=== PATIENT | female | born 1955 | race Caucasian/White ===

== ENCOUNTER 2022-01-17 21:13 | Emergency (ER) | payer OTHER ==
[~2022-01-17] VITALS: Ht 165.1 cm; Wt 133.4 kg
--- NOTE | 2022-01-17 21:20 | NUR ---
BIBRA [id number] FROM HOME FOR C/O R SIDED ABDOMINAL PAIN. HX OD GALL BLADDER STONE. PT A/OX4. TOLERATING R/A WELL WITH NO SOB. PT NON AMBULATORY. CONNECTED PT TO POX AND MONITOR.
--- NOTE | 2022-01-17 21:50 | NUR ---
ASKED PT FOR URINE SAMPLE. PT REFUSED STATED " I ALREADY HAD ONE DONE AT [facility], GET IT FROM THEM." NIDHI BERGERON AWARE.
--- NOTE | 2022-01-17 21:53 | NUR ---
TRACK HOE OPERATOR AT PT'S BEDSIDE
[2022-01-17 21:57] LABS: BASOPHILS # (AUTO) 0.1 K/uL (0.0-0.2); BASOPHILS % (AUTO) 0.7 % (0.0-2.0); EOSINOPHILS % (AUTO) 2.4 % (0.0-6.0); HEMATOCRIT 37 % (33-45); HEMOGLOBIN 12.1 g/dL (11.5-14.8); LYMPHOCYTES # (AUTO) 1.9 K/uL (0.8-4.8); LYMPHOCYTES % (AUTO) 19.6 % (20.0-44.0); MEAN CORPUSCULAR HGB CONC 33 g/dl (31.0-36.0); MEAN CORPUSCULAR VOLUME 86 fL (82-100); MONOCYTES # (AUTO) 0.7 K/uL (0.1-1.30); MONOCYTES % (AUTO) 6.6 % (2.0-12.0); NEUTROPHILS % (AUTO) 70.7 % (43.0-81.0); PLATELET COUNT (AUTO) 303 K/uL (150-450); RED BLOOD CELL COUNT(AUTO) 4.31 MIL/uL (4.0-5.2); WHITE BLOOD COUNT (AUTO) 9.9 K/uL (4.3-11.0)
[2022-01-17 22:06] LABS: CALCIUM, SERUM 9.2 mg/dL (8.5-10.1); CREATININE 0.7 mg/dL (0.6-1.3); POTASSIUM 3.8 mmol/L (3.5-5.1)
[2022-01-17 22:11] LABS: ALBUMIN 3.2 g/dL (3.4-5.0); BILIRUBIN,DIRECT 0.1 mg/dL (0.0-0.2); BILIRUBIN,TOTAL 0.6 mg/dL (0.2-1.0); TOTAL PROTEIN, SERUM 7.5 g/dL (6.4-8.2)
--- NOTE | 2022-01-17 22:12 | NUR ---
DR. GASTON BERGERON AT PT'S BEDSIDE
--- NOTE | 2022-01-17 22:24 | NUR ---
COVID ANTIGEN SWAB COLLECTED AND SENT TO LAB
--- NOTE | 2022-01-17 22:34 | NUR ---
PT TAKEN TO CT VIA [facility]
--- NOTE | 2022-01-17 23:24 | NUR ---
[facility] CALLED PER DR FELDMAN.
[2022-01-17] MEDS ORDERED: PIPERACILLIN /TAZOBACTAM 3.375 G VIAL IV ONE (23:26)
[2022-01-17] MEDS ORDERED: PIPERACILLIN /TAZOBACTAM 2.25 G in IV D5W 50 ML IV ONE (23:30)
--- NOTE | 2022-01-18 00:51 | NUR ---
[facility] PER MELINDA PT ACCEPTED UNDER MD GALLEGOS, [facility] ER REPORT [phone] ETA [phone]
[2022-01-18] MEDS ORDERED: IV NS 0.9% 1,000 ML BAG IV ONE (01:00)
--- NOTE | 2022-01-18 01:38 | NUR ---
REPORT GIVEN TO SKIP DEJESUS FROM [facility]
--- NOTE | 2022-01-18 02:13 | NUR ---
GOT A CALL FROM NENA AT [facility], POSTPONING THE ETA TO [phone]
--- NOTE | 2022-01-18 04:29 | NUR ---
PT INCONTINENT; LARGE URINE NOTED. CLEANED PT AND KEPT CLEAN AND DRY. ALL NEEDS MET AT THIS TIME.
[2022-01-18 05:52] VITALS: BP 138/67
[2022-01-18] MEDS ORDERED: MORPHINE SULFATE INJ 2 MG/ML DISP.SYRIN ONE (06:59)
[2022-01-18] MEDS ORDERED: MORPHINE SULFATE INJ 2 MG/ML DISP.SYRIN IV ONE (07:00)
--- NOTE | 2022-01-18 07:03 | NUR ---
REPORT GIVEN TO MICHELLE FROM [facility] FOR PT TO TRANSFER TO [facility]
== END 2022-01-18 07:10 | disposition short-term general hospital (02) ==
LOC: ER 21:15
DX: K80.10 Calculus of gallbladder with chronic cholecystitis without obstruction (principal); Z20.822 Contact with and (suspected) exposure to COVID-19; M79.7 Fibromyalgia; J45.909 Unspecified asthma, uncomplicated; I10 Essential (primary) hypertension; Z88.6 Allergy status to analgesic agent; E11.9 Type 2 diabetes mellitus without complications
CPT/HCPCS: 36415; 74176; 80048; 80076; 83690; 85025; 87426; 96365; 96375; 99285; C9803; J2270; J2543; J7040; J7060

== ENCOUNTER 2025-01-17 17:06 | Emergency (ER) | payer OTHER, MEDICAID ==
[~2025-01-17] VITALS: Ht 165.1 cm; Wt 136.1 kg
[2025-01-17 17:14] VITALS: TEMP 98.2
[2025-01-17 18:09] LABS: BASOPHILS # (AUTO) 0.1 K/uL (0.0-0.2); BASOPHILS % (AUTO) 0.5 % (0.0-2.0); EOSINOPHILS # (AUTO) 0.3 K/uL (0.0-0.7); EOSINOPHILS % (AUTO) 2.9 % (0.0-6.0); HEMATOCRIT 39 % (33-45); HEMOGLOBIN 12.5 g/dL (11.5-14.8); LYMPHOCYTES # (AUTO) 2.1 K/uL (0.8-4.8); LYMPHOCYTES % (AUTO) 21.6 % (20.0-44.0); MEAN CORPUSCULAR HEMOGLOBIN 28 PG (26.0-33.0); MEAN CORPUSCULAR HGB CONC 32 g/dl (31.0-36.0); MEAN CORPUSCULAR VOLUME 87 fL (82-100); MONOCYTES # (AUTO) 0.7 K/uL (0.1-1.30); MONOCYTES % (AUTO) 7.5 % (2.0-12.0); NEUTROPHILS # (AUTO) 6.6 K/uL (1.8-8.9); NEUTROPHILS % (AUTO) 67.5 % (43.0-81.0); PLATELET COUNT (AUTO) 280 K/uL (150-450); RED BLOOD CELL COUNT(AUTO) 4.46 MIL/uL (4.0-5.2); RED CELL DISTRIBUTION WIDTH 16.1 % (11.5-15.0); WHITE BLOOD COUNT (AUTO) 9.8 K/uL (4.3-11.0)
[2025-01-17 18:16] LABS: CALCIUM, SERUM 9.6 mg/dL (8.5-10.1); SODIUM SERUM 142 mmol/L (136-145); UREA NITROGEN, BLOOD 12 mg/dL (7-18)
[2025-01-17 19:33] LABS: ALANINE AMINOTRANSFERASE 30 U/L (12-78); ALBUMIN 3.1 g/dL (3.4-5.0); ALKALINE PHOSPHATASE 60 U/L (46-116); ASPARTATE AMINOTRANSFERASE 22 U/L (15-37); BILIRUBIN,DIRECT 0.2 mg/dL (0.0-0.2); BILIRUBIN,TOTAL 0.5 mg/dL (0.2-1.0); LACTIC ACID 3.5 mmol/L (0.4-2.0); TOTAL PROTEIN, SERUM 6.9 g/dL (6.4-8.2)
[2025-01-17 19:35] LABS: CARBON DIOXIDE 28 mmol/L (21-32); CHLORIDE 106 mmol/L (98-107); CREATININE 0.7 mg/dL (0.6-1.3); GLUCOSE 135 mg/dL (74-106); POTASSIUM 3.4 mmol/L (3.5-5.1)
[2025-01-17 19:38] LABS: APPEARANCE,URINE SLIGHTLY CLOUDY (CLEAR); BILIRUBIN,URINE NEGATIVE (NEGATIVE); BLOOD, URINE NEGATIVE Ery/uL (NEGATIVE); COLOR,URINE YELLOW (YELLOW); KETONES,URINE NEGATIVE (NEGATIVE); LEUKOCYTE ESTERASE ,URINE NEGATIVE (NEGATIVE); NITRITE, URINE POSITIVE (NEGATIVE); PH,URINE 6.5 (5.0-8.0); PROTEIN,URINE NEGATIVE (NEGATIVE); UGLUCOSE NEGATIVE (NEGATIVE); UROBILINOGEN,URINE 0.2 EU/dL (0.2)
[2025-01-17] MEDS ORDERED: methylPREDNISolone SOD SUCC 125 MG/2ML VIAL ONE (19:48)
[2025-01-17] MEDS ORDERED: AZITHROMYCIN 500 MG VIAL ONE (19:48)
[2025-01-17] MEDS ORDERED: CEFTRIAXONE 1GM BAG (ER ONLY) 50 ML IV ONE (19:48)
[2025-01-17 19:54] LABS: ADD URINE CULTURE YES; BACTERIA,URINE 3+ /HPF (None Seen); RBC,URINE 0-2 /HPF (0-2)
[2025-01-17] MEDS: methylPREDNISolone SOD SUCC 125 MG/2ML VIAL IV ONE (19:59)
[2025-01-17] MEDS: CEFTRIAXONE 1GM BAG (ER ONLY) 50 ML IV ONE (19:59)
[2025-01-17] MEDS: IV NS 0.9% 1,000 ML BAG IV ONE (19:59)
[2025-01-17 20:00] LABS: INR 1.04 (0.91-1.10)
[2025-01-17] MEDS ORDERED: IPRATROPIUM NEB FS 0.5 MG/2.5 ML AMPUL.NEB ONE (20:06)
[2025-01-17] MEDS ORDERED: ALBUTEROL FS 2.5 MG/3 ML VIAL.NEB ONE (20:06)
[2025-01-17] MEDS: AZITHROMYCIN 500 MG in IV D5W 250 ML IV ONE (20:07)
[2025-01-17 20:12] VITALS: O2SAT 97
[2025-01-17] MEDS: ALBUTEROL FS 2.5 MG/3 ML VIAL.NEB CONTNEB ONE (20:12)
[2025-01-17] MEDS: IPRATROPIUM NEB FS 0.5 MG/2.5 ML AMPUL.NEB NEB ONE (20:12)
[2025-01-17 20:40] VITALS: BP 149/72
[2025-01-17 21:12] VITALS: O2SAT 100
== END 2025-01-18 00:35 | disposition short-term general hospital (02) ==
LOC: ER 17:22
DX: J40 Bronchitis, not specified as acute or chronic (principal); A41.9 Sepsis, unspecified organism; E11.9 Type 2 diabetes mellitus without complications; E87.20 Acidosis, unspecified; E87.6 Hypokalemia; E88.09 Other disorders of plasma-protein metabolism, not elsewhere classified; I10 Essential (primary) hypertension; J20.9 Acute bronchitis, unspecified; J45.909 Unspecified asthma, uncomplicated; R65.20 Severe sepsis without septic shock; Z20.822 Contact with and (suspected) exposure to COVID-19
CPT/HCPCS: 99291; 96365; 71045; 96375; 87426; 96368; 93005; 87804 ×2; 84145; 85025; 80048; 87040 ×2; 87086; 83605 ×2; 80076; 81001; 36415; 85730; 94644; J2919; J7030; J0456; J0696